=== PATIENT | female | born 1955 | race Caucasian/White ===

== ENCOUNTER 2018-03-17 10:49 | Outpatient (CLI) | payer OTHER | END 2018-03-17 10:50 | disposition home or self-care (01) | LOC: BICMAMMO 10:49 | PROVIDERS: ATTEND Family Medicine | DX: Z12.31 Encounter for screening mammogram for malignant neoplasm of breast (principal); R92.1 Mammographic calcification found on diagnostic imaging of breast | CPT/HCPCS: 77063; 77067 ==

== ENCOUNTER 2019-03-29 10:39 | Outpatient (CLI) | payer BC, OTHER ==
--- NOTE | 2019-03-29 13:20 | MMO ---
Bilateral MAMMO Bilat Screen [facility]. CLINICAL HISTORY: Patient is 63 years old and is seen for screening. The patient has no family history of breast cancer. The patient has no personal history of cancer. VIEWS: The views performed were: bilateral craniocaudal with tomosynthesis and bilateral mediolateral oblique with tomosynthesis. FILMS COMPARED: The present examination has been compared to prior imaging studies performed at [facility] on 03/17/2018, and at [facility] on 12/04/2011, 06/28/2013 and 03/13/2016. MAMMOGRAM FINDINGS: The breasts are heterogeneously dense, which could obscure a lesion on mammography. Benign calcifications are noted bilaterally. There are no suspicious masses, suspicious calcifications, or new areas of architectural distortion. IMPRESSION: THERE IS NO MAMMOGRAPHIC EVIDENCE OF MALIGNANCY. A ROUTINE FOLLOW-UP MAMMOGRAM IN 1 YEAR IS RECOMMENDED. THE RESULTS OF THIS EXAM WERE SENT TO THE PATIENT. ACR BI-RADS Category 2 - Benign finding MAMMOGRAPHY NOTE: 1. A negative mammogram report should not delay a biopsy if a dominant of clinically suspicious mass is present. 2. Approximately 10% to 15% of breast cancers are not detected by mammography. 3. Adenosis and dense breasts may obscure an underlying neoplasm. Reported by: Robert VALE Electonically Signed: [id number]
== END 2019-03-29 10:40 | disposition home or self-care (01) ==
LOC: BICMAMMO 10:39
PROVIDERS: ATTEND Family Medicine
DX: Z12.31 Encounter for screening mammogram for malignant neoplasm of breast (principal)
CPT/HCPCS: 77063; 77067

== ENCOUNTER 2019-10-29 15:25 | Outpatient (CLI) | payer BC ==
--- NOTE | 2019-10-29 17:01 | ULT ---
EXAM: Transabdominal and transvaginal pelvic ultrasound with Doppler PROVIDED CLINICAL HISTORY: History COMPARISON: None FINDINGS: The uterus measures approximately 6.4 x 2.6 x 4.3 cm and demonstrates a normal sonographic appearance . Uterine endometrial thickness is 7 mm. Right and left ovaries are not visualized. There is no evidence for free pelvic fluid. IMPRESSION: Endometrial thickening, which could reflect endometrial carcinoma in a postmenopausal patient with va ginal bleeding. Correlation with tissue sampling is recommended.
== END 2019-10-29 15:26 | disposition home or self-care (01) ==
LOC: ULT 15:25
PROVIDERS: ATTEND Family Medicine
DX: N95.0 Postmenopausal bleeding (principal); R30.0 Dysuria; R93.89 Abnormal findings on diagnostic imaging of other specified body structures
CPT/HCPCS: 76856

== ENCOUNTER 2020-05-16 13:27 | Outpatient (CLI) | payer BC ==
--- NOTE | 2020-05-16 14:28 | MMO ---
Bilateral MAMMO Bilat Screen [facility]. CLINICAL HISTORY: Patient is 64 years old and is seen for screening. The patient has no family history of breast cancer. The patient has no personal history of cancer. VIEWS: The views performed were: bilateral craniocaudal with tomosynthesis and bilateral mediolateral oblique with tomosynthesis. FILMS COMPARED: The present examination has been compared to prior imaging studies performed at [facility] on 03/17/2018 and 03/29/2019, and at [facility] on 06/28/2013 and 03/13/2016. This study has been interpreted with the assistance of computer-aided detection. MAMMOGRAM FINDINGS: The breasts are heterogeneously dense, which could obscure a lesion on mammography. Finding 1: There are stable benign appearing calcifications seen in both breasts. Finding 2: There are stable focal asymmetries seen in both breasts. There are no suspicious masses, suspicious calcifications, or new areas of architectural distortion. IMPRESSION: THERE IS NO MAMMOGRAPHIC EVIDENCE OF MALIGNANCY. A ROUTINE FOLLOW-UP MAMMOGRAM IN 1 YEAR IS RECOMMENDED. THE RESULTS OF THIS EXAM WERE SENT TO THE PATIENT. ACR BI-RADS Category 2 - Benign finding MAMMOGRAPHY NOTE: 1. A negative mammogram report should not delay a biopsy if a dominant of clinically suspicious mass is present. 2. Approximately 10% to 15% of breast cancers are not detected by mammography. 3. Adenosis and dense breasts may obscure an underlying neoplasm. Reported by: JANA ELIZABETH MD Electonically Signed: [id number]
== END 2020-05-16 13:28 | disposition home or self-care (01) ==
LOC: BICMAMMO 13:27
PROVIDERS: ATTEND Family Medicine
DX: Z12.31 Encounter for screening mammogram for malignant neoplasm of breast (principal)
CPT/HCPCS: 77063; 77067

== ENCOUNTER 2021-10-26 10:22 | Outpatient (CLI) | payer MEDICARE, BC | END 2021-10-26 10:23 | disposition home or self-care (01) | LOC: BICMAMMO 10:22 | PROVIDERS: ATTEND Family Medicine | DX: Z12.31 Encounter for screening mammogram for malignant neoplasm of breast (principal); Z80.3 Family history of malignant neoplasm of breast | CPT/HCPCS: 77063; 77067 ==

== ENCOUNTER 2022-08-27 10:21 | Outpatient (CLI) | payer MEDICARE, BC | END 2022-08-27 10:22 | disposition home or self-care (01) | LOC: BICMAMMO 10:21 | PROVIDERS: ATTEND Family Medicine | DX: Z13.820 Encounter for screening for osteoporosis (principal); M85.851 Other specified disorders of bone density and structure, right thigh; M85.852 Other specified disorders of bone density and structure, left thigh | CPT/HCPCS: 77080 ==

== ENCOUNTER 2022-11-15 10:07 | Outpatient (CLI) | payer MEDICARE, BC | END 2022-11-15 10:08 | disposition home or self-care (01) | LOC: BICMAMMO 10:07 | PROVIDERS: ATTEND Family Medicine | DX: Z12.31 Encounter for screening mammogram for malignant neoplasm of breast (principal); N63.10 Unspecified lump in the right breast, unspecified quadrant | CPT/HCPCS: 77063; 77067 ==

== ENCOUNTER 2023-11-17 | Outpatient (CLI) | payer MEDICARE, BC | END 2023-11-17 11:00 | disposition home or self-care (01) | DX: Z12.31 Encounter for screening mammogram for malignant neoplasm of breast (principal); Z80.3 Family history of malignant neoplasm of breast ==

== ENCOUNTER 2024-12-23 09:36 | Outpatient (CLI) | payer MEDICARE, BC | END 2024-12-23 09:37 | disposition home or self-care (01) | LOC: BICMAMMO 09:36 | PROVIDERS: ATTEND Family Medicine | DX: Z12.31 Encounter for screening mammogram for malignant neoplasm of breast (principal); Z78.0 Asymptomatic menopausal state; Z80.3 Family history of malignant neoplasm of breast; M85.851 Other specified disorders of bone density and structure, right thigh; M85.852 Other specified disorders of bone density and structure, left thigh | CPT/HCPCS: 77063; 77067; 77080 ==